=== PATIENT | male | born 1950 | race African-American/Black ===

== ENCOUNTER 2016-07-17 22:10 | Inpatient (IN) | payer MEDICARE ==
[~2016-07-17] VITALS: Ht 172.7 cm; Wt 92.1 kg
[2016-07-17] MEDS ORDERED: FENTANYL PF 100 MCG/2 ML VIAL. IV PRN (23:15)
[2016-07-17 23:22] LABS: BASO % 1 % (0-3); EOS % 2 % (0-3); HEMATOCRIT 42.3 % (39.0-53.0); HEMOGLOBIN 14.3 g/dL (13.0-17.5); LYMPH # 1.6 x10^3/uL (1.0-4.8); LYMPH % 24 % (24-48); MEAN CORPUSCULAR HEMOGLOBIN 31 pg (25-35); MEAN CORPUSCULAR HGB CONC 34 g/dL (31-37); MEAN CORPUSCULAR VOLUME 91 fL (79-100); MONO % 12 % (0-9); NEUT % 61 % (31-73); PLATELET COUNT 260 x10^3/uL (140-400); RED BLOOD COUNT 4.65 x10^6/uL (4.30-5.70); RED CELL DISTRIBUTION WIDTH 13.3 % (11.5-14.5); WHITE BLOOD COUNT 6.8 x10^3/uL (4.0-11.0)
[2016-07-17] MEDS ORDERED: ONDANSETRON PF 4 MG/2 ML VIAL. IV ONE (23:30)
[2016-07-17] MEDS ORDERED: IV NORMAL SALINE 1000ML BAG 1,000 ML IV SCH (23:30)
[2016-07-17 23:31] LABS: INR 1.1 (0.8-1.1); PROTHROMBIN TIME PATIENT 13.5 SEC (11.7-14.0)
[2016-07-17 23:34] LABS: CALCIUM 9.7 mg/dL (8.5-10.1); CREATININE 1.1 mg/dL (0.7-1.3); POTASSIUM 4.2 mmol/L (3.5-5.1)
[2016-07-17 23:40] LABS: ALBUMIN 3.7 g/dL (3.4-5.0); DIRECT BILIRUBIN 0.1 mg/dL (0.0-0.2); MAGNESIUM 1.9 mg/dL (1.8-2.4); TOTAL BILIRUBIN 0.4 mg/dL (0.2-1.0); TOTAL PROTEIN 7.5 g/dL (6.4-8.2)
--- NOTE | 2016-07-17 23:46 | PHYS DOC ---
Past Medical History Past Medical History: Arthritis, CVA, Diabetes-Type II, Hypertension Additional Past Medical Histor: "mini stroke," mi 1999, neuropathy,ptsd Past Surgical History: Other Additional Past Surgical Histo: L ankle, carpel tunnel Alcohol Use: None Drug Use: None Adult General Chief Complaint Chief Complaint: CHEST PAIN HPI HPI Patient is a 65 year old male who presents with complaint of chest pain. Patient states that his symptoms started approximately 2100 this evening. Patient states that he had just sat down to watch television when he started getting severe right-sided chest pain. Patient states that this radiated across to his left anterior chest. Patient states that the pain was very sharp. Patient states that he had associated left shoulder pain with numbness, nausea, and shortness of breath with his symptoms. Patient states that he has history of previous myocardial infarction that took place in 1999. Patient states that he did not require endovascular stenting at that time. The patient has history of hypertension, hyperlipidemia, type 2 diabetes mellitus, and has history of extensive tobacco use. Patient states he did quit smoking cigarettes 10 years ago. Patient denies any associated fevers or productive cough. Patient was brought to the emergency department by EMS for further evaluation. The patient was given full strength aspirin and nitroglycerin prior to arrival. Patient states that this helped reduce his symptoms mildly. Patient currently rates his pain as 6 out of 10. Review of Systems Review of Systems Constitutional: Denies fever or chills [] Eyes: Denies change in visual acuity, redness, or eye pain [] HENT: Denies nasal congestion or sore throat [] Respiratory: Shortness of breath [] Cardiovascular: Chest pain, denies edema [] GI: Nausea, denies abdominal pain, vomiting, bloody stools or diarrhea [] : Denies dysuria or hematuria [] Musculoskeletal: Denies back pain or joint pain [] Integument: Denies rash or skin lesions [] Neurologic: Denies headache, focal weakness or sensory changes [] Current Medications Current Medications Current Medications Medications (Trade) Dose Ordered Sig/Rachid Start Time Stop Time Status Last Admin Dose Admin Fentanyl Citrate 50 mcg 50 mcg PRN Q15MIN PRN 07/17/16 23:15 07/18/16 23:14 Ondansetron HCl (Zofran) 4 mg 1X ONCE 07/17/16 23:30 07/17/16 23:31 DC Sodium Chloride (Iv Sodium Chloride 0.9% 1000ml Bag) 1,000 ml @ 100 mls/hr Q10H 07/17/16 23:30 07/18/16 09:29 Allergies Allergies Allergies Coded Allergies Type Severity Reaction Last Updated Verified No Known Drug Allergies 07/17/16 No Physical Exam Physical Exam Constitutional: Alert, afebrile, appears in moderate discomfort. [] HENT: Normocephalic, atraumatic, bilateral external ears normal, oropharynx moist, no oral exudates, nose normal. [] Eyes: PERRLA, EOMI, conjunctiva normal, no discharge. [] Neck: Normal range of motion, no tenderness, supple, no stridor. [] Cardiovascular:Heart rate regular rhythm, no murmur [] Lungs & Thorax: Bilateral breath sounds clear to auscultation [] Abdomen: Bowel sounds normal, soft, no tenderness, no masses, no pulsatile masses. [] Skin: Warm, dry, no erythema, no rash. [] Back: No tenderness, no CVA tenderness. [] Extremities: No tenderness, no cyanosis, no clubbing, ROM intact, no edema. [] Neurologic: Alert and oriented X 3, normal motor function, normal sensory function, no focal deficits noted. [] Current Patient Data Vital Signs Vital Signs Date Time Temp Pulse Resp B/P Pulse Ox O2 Delivery O2 Flow Rate FiO2 07/17/16 22:10 98.8 75 16 128/78 98 4 98.8 Lab Values Laboratory Tests Test 07/17/16 22:40 White Blood Count 6.8x10^3/uL (4.0-11.0) Red Blood Count 4.65x10^6/uL (4.30-5.70) Hemoglobin 14.3g/dL (13.0-17.5) Hematocrit 42.3% (39.0-53.0) Mean Corpuscular Volume 91fL (79-100) Mean Corpuscular Hemoglobin 31pg (25-35) Mean Corpuscular Hemoglobin Concent 34g/dL (31-37) Red Cell Distribution Width 13.3% (11.5-14.5) Platelet Count 260x10^3/uL (140-400) Neutrophils (%) (Auto) 61% (31-73) Lymphocytes (%) (Auto) 24% (24-48) Monocytes (%) (Auto) 12% (0-9) H Eosinophils (%) (Auto) 2% (0-3) Basophils (%) (Auto) 1% (0-3) Neutrophils # (Auto) 4.1x10^3uL (1.8-7.7) Lymphocytes # (Auto) 1.6x10^3/uL (1.0-4.8) Monocytes # (Auto) 0.8x10^3/uL (0.0-1.1) Eosinophils # (Auto) 0.1x10^3/uL (0.0-0.7) Basophils # (Auto) 0.0x10^3/uL (0.0-0.2) Prothrombin Time 13.5SEC (11.7-14.0) Prothrombin Time INR 1.1 (0.8-1.1) Sodium Level 142mmol/L (136-145) Potassium Level 4.2mmol/L (3.5-5.1) Chloride Level 103mmol/L (98-107) Carbon Dioxide Level 28mmol/L (21-32) Anion Gap 11 (6-14) Blood Urea Nitrogen 20mg/dL (8-26) Creatinine 1.1mg/dL (0.7-1.3) Estimated GFR (Cockcroft-Gault) 67.0 Glucose Level 135mg/dL (70-99) H Calcium Level 9.7mg/dL (8.5-10.1) Magnesium Level 1.9mg/dL (1.8-2.4) Total Bilirubin 0.4mg/dL (0.2-1.0) Direct Bilirubin 0.1mg/dL (0.0-0.2) Aspartate Amino Transferase (AST) 35U/L (15-37) Alanine Aminotransferase (ALT) 48U/L (16-63) Alkaline Phosphatase 71U/L (46-116) Troponin I Quantitative < 0.017ng/mL (0.000-0.055) Total Protein 7.5g/dL (6.4-8.2) Albumin 3.7g/dL (3.4-5.0) Laboratory Tests 07/17/16 22:40 Laboratory Tests 07/17/16 22:40 EKG EKG Interpreted by me: Heart rate 75, sinus rhythm, normal intervals, normal axis, no acute ST/T-wave abnormalities present [] Radiology/Procedures Radiology/Procedures One view AP chest x-ray interpreted by me: No infiltrate, no effusion, normal cardiac silhouette Course & Med Decision Making Course & Med Decision Making Pertinent Labs and Imaging studies reviewed. (See chart for details) Patient was given fentanyl for pain with mild improvement. Patient's initial cardiac enzymes were negative. The patient has a SANDI score is 4 placing patient had significant risk for a cardiac event. The patient will need to be admitted to the hospital for rule out of myocardial infarction. I spoke with Dr. Holloway who accepted care patient in hospital. A consult was placed to Dr. David of cardiology to follow with patient in hospital. Dragon Disclaimer Dragon Disclaimer This electronic medical record was generated, in whole or in part, using a voice recognition dictation system. Departure Departure Impression: Primary Impression: Chest pain Additional Impressions: Hypertension Hyperlipidemia Type 2 diabetes mellitus History of myocardial infarction Disposition: ADMITTED INPATIENT Admitting Physician: Babar Holloway Condition: STABLE Problem Qualifiers Primary Impression: Chest pain Chest pain type: unspecified Qualified Code: R07.9 - Chest pain, unspecified Additional Impressions: Hypertension Hypertension type: essential hypertension Qualified Code: I10 - Essential ( primary) hypertension Hyperlipidemia Hyperlipidemia type: unspecified Qualified Code: E78.5 - Hyperlipidemia, unspecified Type 2 diabetes mellitus Diabetes mellitus complication status: without complication Diabetes mellitus intermodal truck driver insulin use: unspecified residential insulin use status Qualified Code: E11.9 - Type 2 diabetes mellitus without complications RHONA THOMASON MD Jul 17, 2016 23:46
[2016-07-17 23:47] LABS: CKMB INDEX 0.7 % (0-4); CKMB MASS 0.7 ng/mL (0.0-3.6)
[2016-07-17] MEDS: IV NORMAL SALINE 1000ML BAG 1,000 ML IV SCH (23:54)
[2016-07-18] VITALS (7 sets, daily range): BP systolic 104–131; BP diastolic 50–76
[2016-07-18] MEDS ORDERED: FENTANYL PF 100 MCG/2 ML VIAL. IV PRN
[2016-07-18] MEDS ORDERED: ONDANSETRON PF 4 MG/2 ML VIAL. IV PRN
[2016-07-18] MEDS ORDERED: ACETAMINOPHEN 325 MG TABLET. PO PRN
[2016-07-18] MEDS ORDERED: ONDA-36 PO (01:24)
[2016-07-18] MEDS ORDERED: MINE120C TP (01:24)
[2016-07-18] MEDS ORDERED: CLON0.2T PO (01:24)
[2016-07-18] MEDS ORDERED: CHOL10003 PO (01:24)
[2016-07-18] MEDS ORDERED: CLON0.1T PO (01:24)
[2016-07-18] MEDS ORDERED: SALI44.3 MM (01:24)
[2016-07-18] MEDS ORDERED: ASPI81TA9 PO (01:24)
[2016-07-18] MEDS ORDERED: NORT75CA PO (01:24)
[2016-07-18] MEDS ORDERED: METF500T4 PO (01:24)
[2016-07-18] MEDS ORDERED: MIRT30TA3 PO (01:24)
[2016-07-18] MEDS ORDERED: FLUO20CA8 PO (01:24)
[2016-07-18] MEDS ORDERED: AMLO10TA2 PO (01:24)
[2016-07-18] MEDS ORDERED: PANT20TA3 PO (01:24)
[2016-07-18] MEDS ORDERED: NAPR500T3 PO (01:24)
[2016-07-18] MEDS ORDERED: ATOR20TA58 PO (01:24)
[2016-07-18] MEDS ORDERED: [UNRECOGNIZED DRUG - CODE] TP (01:24)
[2016-07-18] MEDS ORDERED: LISI-334 PO (01:24)
[2016-07-18 05:48] LABS: BASO % 1 % (0-3); EOS % 3 % (0-3); HEMATOCRIT 40.5 % (39.0-53.0); HEMOGLOBIN 13.1 g/dL (13.0-17.5); LYMPH # 1.6 x10^3/uL (1.0-4.8); LYMPH % 28 % (24-48); MEAN CORPUSCULAR HEMOGLOBIN 30 pg (25-35); MEAN CORPUSCULAR HGB CONC 32 g/dL (31-37); MEAN CORPUSCULAR VOLUME 94 fL (79-100); MONO % 13 % (0-9); NEUT % 57 % (31-73); PLATELET COUNT 207 x10^3/uL (140-400); RED BLOOD COUNT 4.33 x10^6/uL (4.30-5.70); RED CELL DISTRIBUTION WIDTH 13.6 % (11.5-14.5); WHITE BLOOD COUNT 5.9 x10^3/uL (4.0-11.0)
[2016-07-18 06:01] LABS: CALCIUM 8.8 mg/dL (8.5-10.1); GFR 90.5; POTASSIUM 4.2 mmol/L (3.5-5.1)
--- NOTE | 2016-07-18 06:20 | EKG ---
[facility] [address] [place] [address] Test Date: 2016-07-17 Test Time: 22:14:11 Pat Name: ROSALINA BLAIR Department: Room: 261 1 Gender: M Event Specialist Food Demonstrator: : 1950 Requested By: RHONA THOMASON Order Number: [id number] Reading MD: Yamila Stark Measurements Intervals [place] Rate: 75 P: 35 ID: [id number] QRS: 63 QRSD: 90 T: 39 QT: 378 QTc: 425 Interpretive Statements SINUS RHYTHM LEFT ATRIAL ABNORMALITY QRS(T) CONTOUR ABNORMALITY CONSIDER ANTEROSEPTAL MYOCARDIAL DAMAGE RI6.01 Unconfirmed report No previous ECG available for comparison Electronically Signed On 07-21-2016 20:26:06 FULFILLMENT REPRESENTATIVE by Yamila Stark
--- NOTE | 2016-07-18 08:48 | RAD ---
Portable chest, 07/17/2016: History: Chest pain The patient positioning is lordotic. The heart size and pulmonary vascularity are normal. There is a small peripheral density in the upper right chest laterally which appears to be pleural-based. No underlying rib destruction is seen. There is minimal linear scarring or atelectasis in the right base. The lungs are otherwise clear. There is no evidence of pleural fluid. IMPRESSION: Small pleural-based mass in the lateral aspect of the right upper chest. Correlation with previous chest radiographs if available would be most helpful in determining whether this is stable finding. CT scanning may also be considered for further evaluation. Note: The findings were called to personnel in the [facility] ER at 8:43 AM on 07/18/2016.
--- NOTE | 2016-07-18 09:06 | PDOC2 ---
CARDIAC CONSULT DATE OF CONSULT Date of Consult DATE: 07/18/16 TIME: 08:57 REASON FOR CONSULT Reason for Consult: Chest pain REFERRING PHYSICIAN Referring Physician: Leighann SOURCE Source: Chart review, Patient HISTORY OF PRESENT ILLNESS HISTORY OF PRESENT ILLNESS This is a pleasant 65 yo male admitted for complains of chest pain. Reports that he was sitting up in chair watching TV when all of a sudden he started having sharp pain to his right chest which stayed for 5 minutes then spread to his left chest. He was not SOA at that time but unable to take a deep breath due to pain. Also associated with nausea, diaphoresis, and left arm numbness. He took a baby dose of ASA at that time. His overall symptoms lasted about 20 minutes. When I checked him and have him actively sit up, his right chest discomfort was duplicated. Denies any palpitations nor BLOOM. His mobility is limited and he lives in a form of assisted living facility. He is significant for NC in 1999 but no intervention was done. 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 He is significant for TIA, HTN, DM2(BG home 100-150), HLP. He is compliant with his medications. Denies any long distance travel recently. Denies any injury, falls, overhead reaching nor cancer or VTE. He does take routine naproxen bid in the last 2 yrs for his lower back and right hip pain related to arthritis. PAST MEDICAL HISTORY Cardiovascular: CAD, HTN, NC, Hyperlipidemia Pulmonary: No pertinent hx CENTRAL NERVOUS SYSTEM: Periperal neuropathy, TIA GI: GERD Heme/Onc: No pertinent hx Hepatobiliary: No pertinent hx Psych: Anxiety, Other (PTSD) Musculoskeletal: Osteoarthritis Rheumatologic: No pertinent hx Infectious disease: No pertinent hx Renal/: No pertinent hx Endocrine: Diabetes (2) Dermatology: No pertinent hx PAST SURGICAL HISTORY Past Surgical History: Arthroscopy (right ankle), Other (Left carpal tunnel repair) FAMILY HISTORY Family History noncontributory to CV SOCIAL HISTORY Smoke: No (quit 10 yrs ago 40 pk yr) ALCOHOL: none Drugs: None Lives: Alone CURRENT MEDICATIONS CURRENT MEDICATIONS Current Medications Medications (Trade) Dose Ordered Sig/Rachid Route PRN Reason Start Time Stop Time Status Last Admin Dose Admin Fentanyl Citrate 50 mcg 50 mcg PRN Q15MIN PRN IV PAIN GREATER THAN 3/10 07/17/16 23:15 07/18/16 01:00 DC 07/17/16 23:47 Sodium Chloride (Iv Sodium Chloride 0.9% 1000ml Bag) 1,000 ml @ 100 mls/hr Q10H IV 07/17/16 23:30 07/18/16 09:29 07/17/16 23:46 Ondansetron HCl 4 mg 4 mg 1X ONCE IV 07/17/16 23:30 07/17/16 23:31 DC 07/17/16 23:46 Sodium Chloride (Iv Sodium Chloride 0.9% 1000ml Bag) 1,000 ml @ 100 mls/hr Q10H IV 07/17/16 23:54 07/18/16 23:53 07/17/16 23:54 ALLERGIES ALLERGIES: Coded Allergies: No Known Drug Allergies (Unverified , 07/17/16) ROS Review of System 14 point ROS evaluated with pertinent positives noted per HPI PHYSICAL EXAM General: Alert, Oriented X3, Cooperative, No acute distress HEENT: Atraumatic, Mucous membr. moist/pink Lungs: Clear to auscultation, Normal air movement Heart: Regular rate, Normal S1, Normal S2, Other (2/6 systolic murmur to LLS border) Abdomen: Soft, Other (RUQ tenderness with palpation) Extremities: No cyanosis, No edema Skin: No breakdown, No significant lesion Neuro: Normal speech, Sensation intact Psych/Mental Status: Mental status NL, Mood NL MUSCULOSKELETAL: Osteoarthritic changes both hands VITALS VITALS Vital Signs Date Time Temp Pulse Resp B/P Pulse Ox O2 Delivery O2 Flow Rate FiO2 07/18/16 07:00 98.4 63 16 125/65 97 Room Air 98.4 07/17/16 22:10 4 LABS Lab: Laboratory Tests Test 07/17/16 22:40 07/18/16 05:20 White Blood Count 6.8x10^3/uL (4.0-11.0) 5.9x10^3/uL (4.0-11.0) Red Blood Count 4.65x10^6/uL (4.30-5.70) 4.33x10^6/uL (4.30-5.70) Hemoglobin 14.3g/dL (13.0-17.5) 13.1g/dL (13.0-17.5) Hematocrit 42.3% (39.0-53.0) 40.5% (39.0-53.0) Mean Corpuscular Volume 91fL (79-100) 94fL (79-100) Mean Corpuscular Hemoglobin 31pg (25-35) 30pg (25-35) Mean Corpuscular Hemoglobin Concent 34g/dL (31-37) 32g/dL (31-37) Red Cell Distribution Width 13.3% (11.5-14.5) 13.6% (11.5-14.5) Platelet Count 260x10^3/uL (140-400) 207x10^3/uL (140-400) Neutrophils (%) (Auto) 61% (31-73) 57% (31-73) Lymphocytes (%) (Auto) 24% (24-48) 28% (24-48) Monocytes (%) (Auto) 12% (0-9) 13% (0-9) Eosinophils (%) (Auto) 2% (0-3) 3% (0-3) Basophils (%) (Auto) 1% (0-3) 1% (0-3) Neutrophils # (Auto) 4.1x10^3uL (1.8-7.7) 3.3x10^3uL (1.8-7.7) Lymphocytes # (Auto) 1.6x10^3/uL (1.0-4.8) 1.6x10^3/uL (1.0-4.8) Monocytes # (Auto) 0.8x10^3/uL (0.0-1.1) 0.8x10^3/uL (0.0-1.1) Eosinophils # (Auto) 0.1x10^3/uL (0.0-0.7) 0.2x10^3/uL (0.0-0.7) Basophils # (Auto) 0.0x10^3/uL (0.0-0.2) 0.0x10^3/uL (0.0-0.2) Prothrombin Time 13.5SEC (11.7-14.0) Prothromb Time International Ratio 1.1 (0.8-1.1) Sodium Level 142mmol/L (136-145) 137mmol/L (136-145) Potassium Level 4.2mmol/L (3.5-5.1) 4.2mmol/L (3.5-5.1) Chloride Level 103mmol/L (98-107) 106mmol/L (98-107) Carbon Dioxide Level 28mmol/L (21-32) 26mmol/L (21-32) Anion Gap 11 (6-14) 5 (6-14) Blood Urea Nitrogen 20mg/dL (8-26) 17mg/dL (8-26) Creatinine 1.1mg/dL (0.7-1.3) 1.0mg/dL (0.7-1.3) Estimated GFR (Cockcroft-Gault) 67.0 90.5 Glucose Level 135mg/dL (70-99) 118mg/dL (70-99) Calcium Level 9.7mg/dL (8.5-10.1) 8.8mg/dL (8.5-10.1) Magnesium Level 1.9mg/dL (1.8-2.4) Total Bilirubin 0.4mg/dL (0.2-1.0) Direct Bilirubin 0.1mg/dL (0.0-0.2) Aspartate Amino Transf (AST/SGOT) 35U/L (15-37) Alanine Aminotransferase (ALT/SGPT) 48U/L (16-63) Alkaline Phosphatase 71U/L (46-116) Creatine Kinase 104U/L (39-308) Creatine Kinase MB (Mass) 0.7ng/mL (0.0-3.6) Creatine Kinase MB Relative Index 0.7% (0-4) Troponin I Quantitative < 0.017ng/mL (0.000-0.055) CO-Xrb-X-Type Natriuretic Peptide 59pg/mL (0-124) Total Protein 7.5g/dL (6.4-8.2) Albumin 3.7g/dL (3.4-5.0) ASSESSMENT/PLAN ASSESSMENT/PLAN 1. Atypical CP: mixed features but with significant cardiac risk factors 2. CAD: NC in 1999 no intervention done. 3. Right pleural lesion: new, which could be the likely source of his CP 4. Chronic NSAID use: 2 yrs of aleve with PPI, esophagitis?gastritis? causing CP 5. HTN: controlled 6. HLP 7. DM2 8. Hx of TIA: remote Recommendations 1. MPI today to completely rule out ischemia 2. Recommend CT chest which could also note his GB status (positive murphys sign ), defer to PCP 3. TSH, lipid panel 4. EKG SR/likely CLARITA without acute changes. TTE today 5. Continue with secondary prevention Problems: ERNIE ACHARYA APRN Jul 18, 2016 09:06
[2016-07-18 10:08] LABS: CHOLESTEROL/HDL RATIO 3.5
[2016-07-18] MEDS ORDERED: REGADENOSON 0.4 MG/5 ML DISP.SYRIN. IV ONE (10:15)
[2016-07-18] MEDS ORDERED: ONDANSETRON ODT 4 MG TAB.RAPDIS PO PRN (11:15)
--- NOTE | 2016-07-18 11:20 | CARD ---
APPROVED REPORT EXAM: Two-dimensional and M-mode echocardiogram with Doppler and color Doppler. Other Information Quality : Average Rhythm : NSR INDICATION Cardiac Disease: CAD Chest Pain RISK FACTORS Hyperlipidemia Diabetes 2D DIMENSIONS RVDd3.2 (2.9-3.5cm)Left Atrium(2D)3.7 (1.6-4.0cm) IVSd0.8 (0.7-1.1cm)Aortic Root(2D)2.7 (2.0-3.7cm) LVDd4.4 (3.9-5.9cm)LVOT Diameter2.0 (1.8-2.4cm) PWd0.8 (0.7-1.1cm)LVDs3.1 (2.5-4.0cm) FS (%) 26.8 %SV50.1 ml LVEF(%)54.2 (>50%) Aortic Valve AoV Peak Beka.129.3cm/sAoV VTI31.9cm AO Peak GR.6.7mmHgLVOT Peak Beka.95.7cm/s AO Mean GR.4mmHgAVA (VMAX)2.28cm2 BRYAN (VTI)2.30cm2 Mitral Valve MV E Aklisjor99.6cm/sMV E Peak Gr.3mmHg MV DECEL [id number] A Grxkfvny94.5cm/s MV E Mean Gr.1mmHgMV ZFA23av E/A Ratio0.9MV A Fuvzsnkg039nf MVA (PHT)3.75cm2 Tricuspid Valve TR P. Rxqbswux815rl/sRAP NHDGSMBN4obIg TR Peak Gr.09rgFoCMAO46mnLh Pulmonary Vein S1 Qisfmptg30.5cm/sD2 Mdfjvumg47.4cm/s PVa zvbibcjd470dhxr LEFT VENTRICLE The left ventricle is normal size. There is normal left ventricular wall thickness. Left ventricle sy stolic function is low normal. The Ejection Fraction is 50%. There is normal LV segmental wall motion . The left ventricular diastolic function and filling is normal for age. RIGHT VENTRICLE The right ventricle is normal size. The right ventricular systolic function is normal. ATRIA The left atrium size is normal. The right atrium size is normal. The interatrial septum is intact wit h no evidence for an atrial septal defect or patent foramen ovale as noted on 2-D or Doppler imaging. AORTIC VALVE The aortic valve is mildly calcifed. The aortic valve is trileaflet. Doppler and Color Flow revealed no significant aortic regurgitation. There is no significant aortic valvular stenosis. MITRAL VALVE Mitral annular calcification is mild. There is no mitral valve stenosis. Doppler and Color Flow revea led trace mitral regurgitation. TRICUSPID VALVE The tricuspid valve is normal in structure and function. Doppler and Color Flow revealed trace tricus pid regurgitation. The PA pressure was estimated at 20 mmHg. There is no tricuspid valve stenosis. PULMONIC VALVE The pulmonic valve is not well visualized. Doppler and Color Flow revealed no pulmonic valvular regur gitation. There is no pulmonic valvular stenosis. GREAT VESSELS The aortic root is normal in size. Normal pulmonary venous flow (Doppler). The IVC is normal in size and collapses >50% with inspiration. PERICARDIAL EFFUSION There is no evidence of significant pericardial effusion. Critical Notification Critical Value: No <Conclusion> Left ventricle systolic function is low normal. The Ejection Fraction is 50%. No significant valvular disease.
--- NOTE | 2016-07-18 13:48 | RAD ---
APPROVED REPORT Test Type: Pharmacological Stress Nurse/Tech: Stephanie Hunt R.N. Test Indications: Chest discomfort Cardiac History: TN in 1999, HTN Medications: SEE EMR Medical History: Former smoker, quit 10 years ago, DM, CVA 2010 Resting ECG: SR Resting Heart Rate: 60 bpm Resting Blood Pressure: 133/69mmHg Pretest Chest Pain: No chest pain Nurse/Tech Notes S1S2, lungs CTA, denied chest pain or SOA. Consent: The procedure was explained to the patient in lay terms. Informed consent was witnessed. Artie eout was entered into [facility]. History and Stress Test performed by Stephanie Hunt R.N. Pharm. Details Pharmacologic stress testing was performed using 0.4mg per 5ml of regadenoson given intravenously ove r 7-10 seconds. Stress Symptoms None reported. POST EXERCISE Reason for Termination: Infusion complete Max HR: 96 bpm Max Blood Pressure: 125/66mmHg Blood Pressure response to exercise: Normal blood pressure response during stress. Heart Rate response to exercise: Normal Chest Pain: No. Arrhythmia: No. ST Change: No. INTERPRETATION Stress EKG Conclusion: The resting EKG showed a sinus rhythm with mild nonspecific ST segment changes . The stress EKG showed no significant changes from baseline. No EKG evidence of stress-induced ischemia. Imaging Protocol IMAGE PROTOCOL: Rest Tc-99m/stress Tc-99m 1 day Rest: Stress: Viability: Radiopharm.Tc99m LpzkdyfkrIn86a Sestamibi Dose12.4mCi 36.1mCi Duration 15min. 10min. Img Date 07/18/2016 07/18/2016 Inj-Img [id number]. 90min. Rest Admin Site:IV - Right AntecubitalAdministrator:SONG Cortez Stress Admin Site: IV - Right AntecubitalAdministrator: KATHERINE Campos, ARRT (R)(N) STRESS DATA End Diast. Vol.92.0mlAv. Heart Rate67.0bpm End Syst. Vol.25.0mlCO Index BSA4.5L/min Myocardial Fsau218.0gEject. Xydlchma12.0% Stress Rates Pk. Fill Rate1.90EDV/secLVtime Pk. Fill 111.51msec Pk. Empty Rate3.09ESV/secLVtime Pk. Tdgsq000.84msec 1/3 Pk. Fill1.45EDV/sec Stress Scores Regional WT0.00Summed WT0.00 Regional WM0.00Summed WM2.00 LV Perfusion The stress scans showed no significant defects. The rest scans showed no significant defects. Nuclear imaging shows no reversible ischemia or infarct. Wall Motion Normal left ventricular systolic function with an ejection fraction of greater than 70%. LV Perf. Quant 17 Seg. SSS0.00 17 Seg. SRS1.00 17 Seg. SDS0.00 Stress Defect Extent (% LAD)0.00Rest Defect Extent (% LAD)0.00Rev. Defect Extent (% LAD)0.00 Stress Defect Extent (% LCX) 0.00Rest Defect Extent (% LCX)0.00Rev. Defect Extent (% LCX)0.00 Stress Defect Extent (% RCA)0.00Rest Defect Extent (% RCA)0.00Rev. Defect Extent (% RCA)0.00 Stress Defect Extent (% EMELIA)0.00Rest Defect Extent (% EMELIA)0.00Rev. Defect Extent (% EMELIA)0.00 Conclusion 1. No EKG evidence of stress-induced ischemia. 2. Nuclear imaging shows no reversible ischemia or infarct. 3. Normal left ventricular systolic function with an ejection fraction of greater than 70%. 4. Low risk Lexiscan nuclear stress test.
[2016-07-18] MEDS: ASPIRIN ENTERIC COATED 81 MG TABLET.DR. PO SCH (13:54)
[2016-07-18] MEDS: PANTOPRAZOLE 40 MG TABLET. PO SCH (13:54)
[2016-07-18] MEDS: CLONIDINE HCL 0.1 MG TABLET PO SCH (13:54)
[2016-07-18] MEDS: CHOLECALCIFEROL (VITAMIN D3) 1,000 UNIT TABLET PO SCH (13:54)
[2016-07-18] MEDS: LISINOPRIL 20 MG TABLET PO SCH (13:54)
[2016-07-18] MEDS: FLUOXETINE HCL 20 MG CAPSULE PO SCH (13:54)
[2016-07-18] MEDS: MINERAL OIL/PETROLATUM TOPICAL CREAM 113GM JAR. TP SCH ×2 (13:55→21:36)
[2016-07-18] MEDS: IV NORMAL SALINE 1000ML BAG 1,000 ML IV SCH (14:16)
--- NOTE | 2016-07-18 14:17 | RAD ---
Right upper quadrant abdominal ultrasound, 07/18/2016: History: Nausea The gallbladder is within normal limits in size. It contains a fold or partial septation. No gallstones are seen. The gallbladder salter are not thickened. The patient was reportedly tender to transducer pressure over the gallbladder region. No bile duct dilatation is evident. The hepatic echogenicity is increased, most commonly due to fatty change. No hepatic mass is evident. The visualized portions of the right kidney and pancreas are unremarkable. IMPRESSION: 1. No sonographic evidence of cholelithiasis. 2. The patient is tender to transducer pressure over the gallbladder. 3. Increased hepatic echogenicity suggesting fatty change.
[2016-07-18] MEDS: NORTRIPTYLINE 25 MG CAPSULE PO SCH (21:31)
[2016-07-18] MEDS: ATORVASTATIN CALCIUM 20 MG TABLET PO SCH (21:31)
[2016-07-18] MEDS: MIRTAZAPINE 15 MG TABLET PO SCH (21:32)
[2016-07-18] MEDS: CLONIDINE HCL 0.2 MG TABLET PO SCH (21:35)
--- NOTE | 2016-07-18 21:44 | PDOC1 ---
History and Physical Date of Admission Date of Admission seen this AM around 11 AM Identification/Chief Complaint Chief Complaint Chest pain Problems: Past Medical History Cardiovascular: CAD, HTN, RI, Hyperlipidemia Pulmonary: No pertinent hx CENTRAL NERVOUS SYSTEM: Periperal neuropathy, TIA GI: GERD Heme/Onc: No pertinent hx Hepatobiliary: No pertinent hx Psych: Anxiety, Other (PTSD) Rheumatologic: No pertinent hx Infectious disease: No pertinent hx Renal/: No pertinent hx Endocrine: Diabetes (2) Dermatology: No pertinent hx Past Surgical History Past Surgical History: Arthroscopy (right ankle), Other (Left carpal tunnel repair) Social History Smoke: No (quit 10 yrs ago 40 pk yr) ALCOHOL: none Drugs: None Current Problem List Problem List Problems Medical Problems: (1) Chest pain Status: Acute (2) History of myocardial infarction Status: Acute (3) Hyperlipidemia Status: Acute (4) Hypertension Status: Acute (5) Type 2 diabetes mellitus Status: Acute Current Medications Current Medications Current Medications Medications (Trade) Dose Ordered Sig/Rachid Start Time Stop Time Status Last Admin Dose Admin Acetaminophen (Tylenol) 650 mg PRN Q4HRS PRN 07/18/16 00:00 07/18/16 23:59 Amlodipine Besylate (Norvasc) 10 mg DAILY 07/19/16 09:00 Aspirin (Ecotrin) 81 mg DAILY 07/18/16 12:00 07/18/16 13:54 81 MG Atorvastatin Calcium (Lipitor) 20 mg HS 07/18/16 21:00 Clonidine HCl (Catapres) 0.2 mg QHS 07/18/16 21:00 Fentanyl Citrate (Fentanyl 2ml Vial) 50 mcg PRN Q15MIN PRN 07/17/16 23:15 07/18/16 01:00 DC 07/17/16 23:47 50 MCG Fentanyl Citrate 50 mcg 50 mcg PRN Q2HR PRN 07/18/16 00:00 07/18/16 23:59 Fluoxetine HCl (Prozac) 20 mg DAILY 07/18/16 12:00 07/18/16 13:54 20 MG Lisinopril (Prinivil) 20 mg DAILY 07/18/16 12:00 07/18/16 13:54 20 MG Mirtazapine (Remeron) 30 mg QHS 07/18/16 21:00 Multi-Ingred Cream/Lotion/Oil/ Oint (Hydrocerin) 1 alessandra BID 07/18/16 12:00 07/18/16 13:55 1 ALESSANDRA Nortriptyline HCl (Pamelor) 150 mg QHS 07/18/16 21:00 Ondansetron HCl (Zofran Odt) 8 mg PRN BID PRN 07/18/16 11:15 Ondansetron HCl (Zofran) 4 mg PRN Q8HRS PRN 07/18/16 00:00 07/18/16 23:59 Pantoprazole Sodium (Protonix) 40 mg DAILYAC 07/18/16 12:00 07/18/16 13:54 40 MG Regadenoson (Lexiscan) 0.4 mg 1X ONCE 07/18/16 10:15 07/18/16 10:16 DC 07/18/16 11:20 0.4 MG Sodium Chloride (Iv Sodium Chloride 0.9% 1000ml Bag) 1,000 ml @ 100 mls/hr Q10H 07/17/16 23:54 07/18/16 23:53 07/18/16 14:16 100 MLS/HR Vitamin D (Vitamin D3) 1,000 unit DAILY 07/18/16 12:00 07/18/16 13:54 1,000 UNIT Allergies Allergies Allergies Coded Allergies Type Severity Reaction Last Updated Verified No Known Drug Allergies 07/17/16 No ROS Review of System CONSTITUTIONAL: No fever or chills EYES: No recent changes SKIN: No rash or itching CARDIOVASCULAR: Chest pain, no syncope, palpitations, or edema RESPIRATORY: No SOB or cough GASTROINTESTINAL: No nausea, vomiting or abdominal pain NEUROLOGICAL: No headaches or weakness ENDOCRINE: No cold or heat intolerance GENITOURINARY: No urgency or frequency of urination MUSCULOSKELETAL: No back pain or joint pain LYMPHATICS: No enlarged lymph nodes PSYCHIATRIC: No anxiety or depression Physical Exam Physical Exam GEN.: No apparent distress. Alert and oriented. HEENT: Head is normocephalic, atraumatic NECK: Supple. NO JVD LUNGS: Clear to auscultation. normal airflow HEART: RRR, S1, S2 present. Peripheral pulses intact ABDOMEN: Soft, nontender. Positive bowel sounds. EXTREMITIES: Without any cyanosis. NEUROLOGIC: Normal speech, normal tone PSYCHIATRIC: Normal affect, normal mood. SKIN: No visible skin changes. Vitals Vitals Vital Signs Date Time Temp Pulse Resp B/P Pulse Ox O2 Delivery O2 Flow Rate FiO2 07/18/16 15:00 97.9 68 18 121/50 99 Room Air 97.9 07/17/16 22:10 4 Labs Labs Laboratory Tests Test 07/17/16 22:40 07/18/16 05:20 07/18/16 08:24 07/18/16 11:59 White Blood Count 6.8x10^3/uL (4.0-11.0) 5.9x10^3/uL (4.0-11.0) Red Blood Count 4.65x10^6/uL (4.30-5.70) 4.33x10^6/uL (4.30-5.70) Hemoglobin 14.3g/dL (13.0-17.5) 13.1g/dL (13.0-17.5) Hematocrit 42.3% (39.0-53.0) 40.5% (39.0-53.0) Mean Corpuscular Volume 91fL (79-100) 94fL (79-100) Mean Corpuscular Hemoglobin 31pg (25-35) 30pg (25-35) Mean Corpuscular Hemoglobin Concent 34g/dL (31-37) 32g/dL (31-37) Red Cell Distribution Width 13.3% (11.5-14.5) 13.6% (11.5-14.5) Platelet Count 260x10^3/uL (140-400) 207x10^3/uL (140-400) Neutrophils (%) (Auto) 61% (31-73) 57% (31-73) Lymphocytes (%) (Auto) 24% (24-48) 28% (24-48) Monocytes (%) (Auto) 12% (0-9) 13% (0-9) Eosinophils (%) (Auto) 2% (0-3) 3% (0-3) Basophils (%) (Auto) 1% (0-3) 1% (0-3) Neutrophils # (Auto) 4.1x10^3uL (1.8-7.7) 3.3x10^3uL (1.8-7.7) Lymphocytes # (Auto) 1.6x10^3/uL (1.0-4.8) 1.6x10^3/uL (1.0-4.8) Monocytes # (Auto) 0.8x10^3/uL (0.0-1.1) 0.8x10^3/uL (0.0-1.1) Eosinophils # (Auto) 0.1x10^3/uL (0.0-0.7) 0.2x10^3/uL (0.0-0.7) Basophils # (Auto) 0.0x10^3/uL (0.0-0.2) 0.0x10^3/uL (0.0-0.2) Prothrombin Time 13.5SEC (11.7-14.0) Prothromb Time International Ratio 1.1 (0.8-1.1) Sodium Level 142mmol/L (136-145) 137mmol/L (136-145) Potassium Level 4.2mmol/L (3.5-5.1) 4.2mmol/L (3.5-5.1) Chloride Level 103mmol/L (98-107) 106mmol/L (98-107) Carbon Dioxide Level 28mmol/L (21-32) 26mmol/L (21-32) Anion Gap 11 (6-14) 5 (6-14) Blood Urea Nitrogen 20mg/dL (8-26) 17mg/dL (8-26) Creatinine 1.1mg/dL (0.7-1.3) 1.0mg/dL (0.7-1.3) Estimated GFR (Cockcroft-Gault) 67.0 90.5 Glucose Level 135mg/dL (70-99) 118mg/dL (70-99) Calcium Level 9.7mg/dL (8.5-10.1) 8.8mg/dL (8.5-10.1) Magnesium Level 1.9mg/dL (1.8-2.4) Total Bilirubin 0.4mg/dL (0.2-1.0) Direct Bilirubin 0.1mg/dL (0.0-0.2) Aspartate Amino Transf (AST/SGOT) 35U/L (15-37) Alanine Aminotransferase (ALT/SGPT) 48U/L (16-63) Alkaline Phosphatase 71U/L (46-116) Creatine Kinase 104U/L (39-308) Creatine Kinase MB (Mass) 0.7ng/mL (0.0-3.6) Creatine Kinase MB Relative Index 0.7% (0-4) Troponin I Quantitative < 0.017ng/mL (0.000-0.055) < 0.017ng/mL (0.000-0.055) GI-Ucs-J-Type Natriuretic Peptide 59pg/mL (0-124) Total Protein 7.5g/dL (6.4-8.2) Albumin 3.7g/dL (3.4-5.0) Triglycerides Level 74mg/dL (0-150) Cholesterol Level 138mg/dL (0-200) LDL Cholesterol, Calculated 84mg/dL (0-100) VLDL Cholesterol, Calculated 15mg/dL (0-40) HDL Cholesterol 39mg/dL (40-60) Cholesterol/HDL Ratio 3.5 Thyroid Stimulating Hormone (TSH) 1.168uIU/mL (0.358-3.74) Glucose (Fingerstick) 102mg/dL (70-99) 77mg/dL (70-99) Test 07/18/16 12:25 07/18/16 16:55 07/18/16 18:05 07/18/16 21:08 Troponin I Quantitative < 0.017ng/mL (0.000-0.055) < 0.017ng/mL (0.000-0.055) Glucose (Fingerstick) 167mg/dL (70-99) 125mg/dL (70-99) Laboratory Tests Test 07/17/16 22:40 07/18/16 05:20 07/18/16 08:24 07/18/16 11:59 White Blood Count 6.8x10^3/uL (4.0-11.0) 5.9x10^3/uL (4.0-11.0) Red Blood Count 4.65x10^6/uL (4.30-5.70) 4.33x10^6/uL (4.30-5.70) Hemoglobin 14.3g/dL (13.0-17.5) 13.1g/dL (13.0-17.5) Hematocrit 42.3% (39.0-53.0) 40.5% (39.0-53.0) Mean Corpuscular Volume 91fL (79-100) 94fL (79-100) Mean Corpuscular Hemoglobin 31pg (25-35) 30pg (25-35) Mean Corpuscular Hemoglobin Concent 34g/dL (31-37) 32g/dL (31-37) Red Cell Distribution Width 13.3% (11.5-14.5) 13.6% (11.5-14.5) Platelet Count 260x10^3/uL (140-400) 207x10^3/uL (140-400) Neutrophils (%) (Auto) 61% (31-73) 57% (31-73) Lymphocytes (%) (Auto) 24% (24-48) 28% (24-48) Monocytes (%) (Auto) 12% (0-9) 13% (0-9) Eosinophils (%) (Auto) 2% (0-3) 3% (0-3) Basophils (%) (Auto) 1% (0-3) 1% (0-3) Neutrophils # (Auto) 4.1x10^3uL (1.8-7.7) 3.3x10^3uL (1.8-7.7) Lymphocytes # (Auto) 1.6x10^3/uL (1.0-4.8) 1.6x10^3/uL (1.0-4.8) Monocytes # (Auto) 0.8x10^3/uL (0.0-1.1) 0.8x10^3/uL (0.0-1.1) Eosinophils # (Auto) 0.1x10^3/uL (0.0-0.7) 0.2x10^3/uL (0.0-0.7) Basophils # (Auto) 0.0x10^3/uL (0.0-0.2) 0.0x10^3/uL (0.0-0.2) Prothrombin Time 13.5SEC (11.7-14.0) Prothromb Time International Ratio 1.1 (0.8-1.1) Sodium Level 142mmol/L (136-145) 137mmol/L (136-145) Potassium Level 4.2mmol/L (3.5-5.1) 4.2mmol/L (3.5-5.1) Chloride Level 103mmol/L (98-107) 106mmol/L (98-107) Carbon Dioxide Level 28mmol/L (21-32) 26mmol/L (21-32) Anion Gap 11 (6-14) 5 (6-14) Blood Urea Nitrogen 20mg/dL (8-26) 17mg/dL (8-26) Creatinine 1.1mg/dL (0.7-1.3) 1.0mg/dL (0.7-1.3) Estimated GFR (Cockcroft-Gault) 67.0 90.5 Glucose Level 135mg/dL (70-99) 118mg/dL (70-99) Calcium Level 9.7mg/dL (8.5-10.1) 8.8mg/dL (8.5-10.1) Magnesium Level 1.9mg/dL (1.8-2.4) Total Bilirubin 0.4mg/dL (0.2-1.0) Direct Bilirubin 0.1mg/dL (0.0-0.2) Aspartate Amino Transf (AST/SGOT) 35U/L (15-37) Alanine Aminotransferase (ALT/SGPT) 48U/L (16-63) Alkaline Phosphatase 71U/L (46-116) Creatine Kinase 104U/L (39-308) Creatine Kinase MB (Mass) 0.7ng/mL (0.0-3.6) Creatine Kinase MB Relative Index 0.7% (0-4) Troponin I Quantitative < 0.017ng/mL (0.000-0.055) < 0.017ng/mL (0.000-0.055) GY-Bpm-A-Type Natriuretic Peptide 59pg/mL (0-124) Total Protein 7.5g/dL (6.4-8.2) Albumin 3.7g/dL (3.4-5.0) Triglycerides Level 74mg/dL (0-150) Cholesterol Level 138mg/dL (0-200) LDL Cholesterol, Calculated 84mg/dL (0-100) VLDL Cholesterol, Calculated 15mg/dL (0-40) HDL Cholesterol 39mg/dL (40-60) Cholesterol/HDL Ratio 3.5 Thyroid Stimulating Hormone (TSH) 1.168uIU/mL (0.358-3.74) Glucose (Fingerstick) 102mg/dL (70-99) 77mg/dL (70-99) Test 07/18/16 12:25 07/18/16 16:55 07/18/16 18:05 07/18/16 21:08 Troponin I Quantitative < 0.017ng/mL (0.000-0.055) < 0.017ng/mL (0.000-0.055) Glucose (Fingerstick) 167mg/dL (70-99) 125mg/dL (70-99) VTE Prophylaxis Ordered VTE Prophylaxis Devices: No VTE Pharmacological Prophylaxi: No VIKAS ACKERMAN MD Jul 18, 2016 21:44
--- NOTE | 2016-07-19 00:08 | ACF ---
Admission Forms Criteria CARDIOLOGY GRG Clinical Indications for Admission to Inpatient Care ( Place 'X' for any and all applicable criteria): Hospital admission is needed for appropriate care of the patient because of ANY ONE of the following (1): [ ] I. Hemodynamic instability as indicated by ALL of the following (1)(2)(3) (4)(5) [ ]a) Vital signs or other findings not as expected for chronic patient condition or baseline [ ]b) Instability indicated by ANY ONE of the following: [ ]i) Hypotension [ ]ii) Symptomatic Tachycardia unresponsive to treatment ( e.g., analgesia, fluids, sedation as indicated) [ ]iii) Inadequate perfusion indicated by ANY ONE of the following: [ ] 1) Lactic acidosis (> 2 mmol/L) [ ] 2) New abnormal capillary refill (> 3 seconds) [ ] 3) Reduced urine output [ ] 4) New altered mental status [ ]iv) Orthostatic vital sign changes unresponsive to treatment (e.g., fluids) [ ]v) IV inotropic or vasopressor medication required to maintain adequate blood pressure or perfusion [ ] II. Severe heart failure as indicated by ANY ONE of the following(17)(18) [ ]a) Respiratory distress [ ]b) Hypotension [ ]c) Anasarca (refractory to outpatient therapy) [ ]d) Cardiac arrhythmias of immediate concern [ ]e) Myocardial ischemia [ ] III. Cardiac arrhythmias or findings of immediate concern indicated by ANY ONE of the following (19)(20): [ ] a) Heart rhythms that are inherently dangerous or unstable indicated by ANY ONE of the following (21)(22)(23): [ ] i) Resuscitated ventricular fibrillation or cardiac arrest [ ] ii) Ventricular escape rhythm [ ] iii) Sustained ventricular tachycardia (30 seconds or more of ventricular rhythm at greater than 100 beats per minute) [ ] iv) Nonsustained ventricular tachycardia and ANY ONE of the following: [ ] 1) Suspected cardiac ischemia as cause or consequence of ventricular tachycardia [ ] 2) In setting of acute myocarditis [ ] b) Unstable cardiac conduction defects indicated by ANY ONE of the following(23)(24)(25) [ ] i) Type II second-degree atrioventricular block [ ]ii) Third-degree atrioventricular block [ ]iii) New-onset left bundle branch block with suspected myocardial ischemia [ ]c) Any heart rhythm and ANY ONE of the following (21)(22)(26)(27) (28) [ ] i) Continuous long-term ECG monitoring needed (e.g., initiation of drug requiring monitoring for more than 24 hours) [ ] ii) Patient has automatic implanted cardioverter defibrillator that is repeatedly firing, malfunctioning, or in need of immediate adjustment of settings beyond the scope of ambulatory or observation care [ ]d) Heart rhythms of concern due to ANY ONE of the following: [ ] i) Hypotension [ ] ii) Respiratory distress [ ] iii) Association with other significant symptoms (e.g., bradycardia with syncope or ongoing dizziness, supraventricular tachycardia with chest pain (14)(15)(17) [ ] IV. Monitoring for cardiac contusion beyond the scope of observation care needed [A](30)(31)(32) [ ] V. Surgical or device complication (e.g., valve replacement complication , pacemaker dysfunction) (35)(41)(44)(45)(46) [ ] . Inpatient palliative care needed. [B](49) Also use Inpatient Palliative Care Criteria [ ] VII. Nonbacterial thrombotic (marantic) endocarditis (36)(43)(47)(48) [X] VIII. Cardiology condition, symptom, or finding for which emergency and observation care has failed or are not considered appropriate. [ ] IX. Acute valvular disease requiring inpatient as indicated by ANY ONE of the following (41) [ ]a) Acute valvular regurgitation (42) [ ]b) Noninfectious valvulitis (43) [ ]c) Obstructive valve thrombosis [ ]d) Paravalvular leak [ ]e) Other significant valvular disorder remaining after emergency or observation level of care (as appropriate) [ ]X. Pericardial disease requiring inpatient treatment as indicated by ANY ONE of the following (33)(34)(35)(36)(37) [ ]a) Suspected tamponade (38)(39)(40) [ ]b) Hemopericardium [ ]c) Other significant pericardial disorder remaining after emergency or observation level of care (as appropriate) [ ] XI. Cardiac ischemia beyond scope of emergency and observation care. [ ] XII. Hypertension requiring inpatient treatment as indicated by ANY ONE of the following (6)(7)(8) [ ]a) SBP greater than 220 mm Hg or DBP greater than 120 mmHg despite treatment [ ]b) SBP greater than 140 mm Hg or DBP greater than 100 mm Hg with evidence of acute end organ damage as indicated by ANY ONE of the following [ ] i) Encephalopathy [ ] ii) Acute renal failure as indicated by new onset of ANY ONE of the following (9)(10)(11)(12)(13) [ ]1) 3-fold rise in serum creatinine from baseline [ ]2) Serum creatinine greater than 4 mg/dL ( 354 micromoles/L) with acute rise greater than 0.5 mg/dL (44.2 micromoles/L) [ ]3) Reduction of more than 75% in estimated glomerular filtration rate from baseline [ ]4) Estimated glomerular filtration rate less than 35 mL/min/1.73m2 (0.59 mL/sec/1.73m2) in child up to 18 years of age [ ]5) Cessation of urine output indicated by ALL of the following [ ]A. Adequate volume status [ ]B. Inadequate urine output as indicated by ANY ONE of the following [ ]a. Urine output less than 0.3 mL/kg/hr for 24 hours [ ]b. Anuria (urine output less than 0.1 mL/kg/hr) for 12 hours [ ] iii) Aortic dissection [ ] iv) Myocardial Ischemia [ ] v) Left ventricular heart failure [ ]vi) Retinal Hemorrhage [ ]vii) Other significant finding [ ]c) Hypertension in child requiring inpatient treatment as indicated by ALL of the following(14)(15)(16) [ ] i) Outpatient treatment not effective, not available, or not appropriate [ ]ii) SBP or DBP greater than 95th percentile for age [ ]iii) Evidence of acute end organ damage as indicated by ANY ONE of the following [ ]1) Altered mental status [ ]2) Acute renal failure as indicated by new onset of ANY ONE of the following(9)(10)(11)(12)(13) [ ]A. 3-fold rise in serum creatinine from baseline [ ]B. Serum creatinine greater than 4 mg/dL (354 micromoles/L) with acute rise greater than 0.5 mg/dL (44.2 micromoles/L) [ ]C. Reduction of more than 75% in estimated glomerular filtration rate from baseline [ ]D. Estimated glomerular filtration rate less than 35 mL/min/1.73m2 (0.59 mL/sec/1.73m2) in child up to 18 years of age [ ]E. Cessation of urine output indicated by ALL of the following [ ]a. Adequate volume status [ ]b. Inadequate urine output as indicated by ANY ONE of the following [ ]i) Urine output less than 0.3 mL/kg/hr for 24 hours [ ]ii) Anuria ( urine output less than 0.1 mL/kg/hr) for 12 hours [ ]3) Severe headache [ ]4) Visual disturbance [ ]5) Retinal hemorrhage [ ]6) Other significant finding [ ]XIII. Complications of transplanted heart indicated by ANY ONE of the following(61): [ ]a) Acute graft rejection requiring inpatient management (eg, intravenous immunosuppression)(62)(63) [ ]b) Acute graft heart failure indicated by ANY ONE of the following(64): [ ]i) Hemodynamic instability [ ]ii) Cardiac arrhythmias of immediate concern [ ]iii) Pulmonary edema that is very severe (eg, mechanical ventilation needed, imminent or likely, need for 100% oxygen to keep oxygen saturation above 90%) [ ]iv) Pulmonary edema that is persistent as indicated by ALL of the following: [ ]1) New need for oxygen therapy to keep oxygen saturation above 90% (or increased FiO2 need from baseline) [ ]2) Has not improved sufficiently with emergency department or observation care IV diuretics or other heart failure treatments[E] [ ]v) Altered mental status that is severe or persistent [ ]vi) Increased creatinine (new on laboratory test) with reduction of more than 50% in estimated glomerular filtration rate from baseline [ ]vii) Progressively (ongoing) rising creatinine (known from past laboratory test) with reduction of more than 25% in estimated glomerular filtration rate from baseline [ ]viii) Acute renal failure [ ]ix) Acute peripheral ischemia (eg, examination shows pulseless, cool, mottled, or cyanotic extremity) [ ]x) Pulmonary artery catheter monitoring needed [ ]xi) Other sign or symptom of heart failure requiring inpatient treatment (ie, too severe or not responsive to outpatient and observation care treatment) [ ]c) Infection requiring inpatient management (eg, Hemodynamic instability, need for intravenous antimicrobial treatment)(66)(67)(68)(69)(70) [ ]d) Cardiac allograft vasculopathy requiring inpatient management ( eg evidence of cardiac ischemia)(71) [ ]e) Other complication of transplanted heart (eg, stroke, severe pulmonary hypertension, severe valvular dysfunction) requiring inpatient management(72) The original [facility] content created by [facility] has been revised. The portions of the content which have been revised are identified through the use of italic text or in bold, and [facility] has neither reviewed nor approved the modified material. All other unmodified content is copyright [facility]. Please see references footnoted in the original [facility] edition 2016 Admission Criteria Met?: Yes MARIZOL NEELY Jul 19, 2016 00:08
[2016-07-19] MEDS: IV NORMAL SALINE 1000ML BAG 1,000 ML IV SCH (02:05)
[2016-07-19 03:41] VITALS: BP 119/70
--- NOTE | 2016-07-19 07:16 | HP ---
ADMIT DATE: 07/18/2016 TIME: Around 11:00 a.m. CHIEF COMPLAINT: Chest pain. HISTORY OF PRESENT ILLNESS: A 65-year-old male patient with a prior history of coronary artery disease, hypertension, diabetes, presented to the ER with a complaint of right-sided chest pain started around 9 pm yesterday while he was watching TV, located in the right side of the chest and also radiated to the _left upper extremity. He described it as pleuritic in nature and getting worse with breathing. Denies any PND, orthopnea or other symptoms such as syncope, palpitations. The patient had an GA in the past in early 1999 and at that time, no intervention was done. The patient has risk factors such as hypertension, diabetes, hyperlipidemia. PAST MEDICAL HISTORY: Coronary artery disease, hypertension, hyperlipidemia. PAST SURGICAL HISTORY: none FAMILY HISTORY: No sudden cardiac . PERSONAL HISTORY: Quit smoking. No alcohol. No drug abuse. REVIEW OF SYSTEMS: CONSTITUTIONAL: No fever or chills. EYES: No recent vision changes. SKIN: No rash or itching. CARDIOVASCULAR: No chest pain, syncope, palpitations or edema. RESPIRATORY: No shortness of breath, cough. GASTROINTESTINAL: No nausea, vomiting, diarrhea or abdominal pain. NEUROLOGICAL: No headache, paralysis. ENDOCRINOLOGIC: No cold or heat intolerance. GENITOURINARY: No burning with urination, no urgency. MUSCULOSKELETAL: No back pain or joint pain. LYMPHATICS: No enlarged nodes. PSYCHIATRIC: No anxiety or depression. PHYSICAL EXAMINATION: GENERAL: No apparent distress. HEENT: Head normocephalic, atraumatic. NECK: Supple. LUNGS: Clear to auscultation. HEART: Regular rate and rhythm; S1, S2 present; pulses intact. ABDOMEN: Soft and positive bowel sounds. EXTREMITIES: No cyanosis or edema. NEUROLOGIC: Normal speech and normal tone; alert and oriented. PSYCHIATRIC: Normal affect, normal mood. SKIN: No ulceration. ALLERGIES: NKDA. LABORATORY FINDINGS: BMP within normal range. CBC within normal range. Coagulation panel, normal range. Troponin is less than 0.017. DIAGNOSTIC DATA: EKG, not able to obtain the report, but as per the ER report, no acute ST-T wave changes seen. IMAGING STUDIES: Chest x-ray, ____ in the lateral aspect of the right upper chest. ASSESSMENT: 1. Chest pain, pleuritic in nature, also with atypical components. 2. Rule out acute coronary syndrome. 3. Coronary artery disease history. 4. Right pleural lesion. Consult Pulmonary. 5. Hypertension. 6. Diabetes. 7. Hyperlipidemia. 8. Obesity, body mass index 30. 9. History of transient ischemic attack in the past. PLAN: 1. We will get 2 sets of troponins and Cardiology has been consulted. 2. I will order ultrasound of the abdomen to rule out any gallstone disease. 3. Consult Pulmonology for right upper pleural lesion, incidental finding. Also, the patient's pain is compatible with the location. 4. Monitor labs, which is a lipid panel. 5. Home medications reviewed, reconciled. 6. Continue home medications. 7. Sliding scale insulin as needed for hyperglycemia. VIKAS ACKERMAN MD DR: HARLAN/tish JOB#: [id number] / [id number] KELLIE
[2016-07-19 07:55] VITALS: BP 125/69
[2016-07-19] MEDS: FLUOXETINE HCL 20 MG CAPSULE PO SCH (08:45)
[2016-07-19] MEDS: CLONIDINE HCL 0.1 MG TABLET PO SCH (08:45)
[2016-07-19] MEDS: AMLODIPINE BESYLATE 10 MG TABLET PO SCH (08:45)
[2016-07-19] MEDS: LISINOPRIL 20 MG TABLET PO SCH (08:45)
[2016-07-19] MEDS: PANTOPRAZOLE 40 MG TABLET. PO SCH (08:45)
[2016-07-19] MEDS: CHOLECALCIFEROL (VITAMIN D3) 1,000 UNIT TABLET PO SCH (08:45)
[2016-07-19] MEDS: ASPIRIN ENTERIC COATED 81 MG TABLET.DR. PO SCH (08:45)
[2016-07-19] MEDS: MINERAL OIL/PETROLATUM TOPICAL CREAM 113GM JAR. TP SCH ×2 (09:00→21:19)
[2016-07-19] MEDS: HYDROCODONE/APAP 5/325MG TABLET. PO PRN ×2 (10:00→18:24)
--- NOTE | 2016-07-19 10:40 | PDOC ---
PROGRESS NOTES Chief Complaint Chief Complaint cc: 1. Chest pain, pleuritic in nature, also with atypical components. 2. Rule out acute coronary syndrome. 3. Coronary artery disease history. 4. Right pleural lesion. Consult Pulmonary. 5. Hypertension. 6. Diabetes. 7. Hyperlipidemia. 8. Obesity, body mass index 30. 9. History of transient ischemic attack in the past. Plan ACS ruled out CT chest pending US abdomen negative BP control Pain control consult pulmonology Vitals Vitals Vital Signs Date Time Temp Pulse Resp B/P Pulse Ox O2 Delivery O2 Flow Rate FiO2 07/19/16 10:00 96 Room Air 07/19/16 08:45 63 125/69 07/19/16 07:55 97.7 19 97.7 Physical Exam General: Alert, Oriented X3, Cooperative, No acute distress Heart: Regular rate, Normal S1, Normal S2, Other (2/6 systolic murmur to LLS border) Lungs: Clear Abdomen: Soft, Other Extremities: No cyanosis, No edema Skin: No breakdown, No significant lesion Labs LABS Laboratory Tests Test 07/18/16 11:59 07/18/16 12:25 07/18/16 16:55 07/18/16 18:05 Glucose (Fingerstick) 77mg/dL (70-99) 167mg/dL (70-99) Troponin I Quantitative < 0.017ng/mL (0.000-0.055) < 0.017ng/mL (0.000-0.055) Test 07/18/16 21:08 07/19/16 08:06 Glucose (Fingerstick) 125mg/dL (70-99) 103mg/dL (70-99) Assessment and Plan Assessmemt and Plan Problems Medical Problems: (1) Chest pain Status: Acute (2) History of myocardial infarction Status: Acute (3) Hyperlipidemia Status: Acute (4) Hypertension Status: Acute (5) Type 2 diabetes mellitus Status: Acute Problems: Comment Review of Relevant I have reviewed the following items caio (where applicable) has been applied. Labs Laboratory Tests Test 07/17/16 22:40 07/18/16 05:20 07/18/16 08:24 07/18/16 11:59 White Blood Count 6.8x10^3/uL (4.0-11.0) 5.9x10^3/uL (4.0-11.0) Red Blood Count 4.65x10^6/uL (4.30-5.70) 4.33x10^6/uL (4.30-5.70) Hemoglobin 14.3g/dL (13.0-17.5) 13.1g/dL (13.0-17.5) Hematocrit 42.3% (39.0-53.0) 40.5% (39.0-53.0) Mean Corpuscular Volume 91fL (79-100) 94fL (79-100) Mean Corpuscular Hemoglobin 31pg (25-35) 30pg (25-35) Mean Corpuscular Hemoglobin Concent 34g/dL (31-37) 32g/dL (31-37) Red Cell Distribution Width 13.3% (11.5-14.5) 13.6% (11.5-14.5) Platelet Count 260x10^3/uL (140-400) 207x10^3/uL (140-400) Neutrophils (%) (Auto) 61% (31-73) 57% (31-73) Lymphocytes (%) (Auto) 24% (24-48) 28% (24-48) Monocytes (%) (Auto) 12% (0-9) 13% (0-9) Eosinophils (%) (Auto) 2% (0-3) 3% (0-3) Basophils (%) (Auto) 1% (0-3) 1% (0-3) Neutrophils # (Auto) 4.1x10^3uL (1.8-7.7) 3.3x10^3uL (1.8-7.7) Lymphocytes # (Auto) 1.6x10^3/uL (1.0-4.8) 1.6x10^3/uL (1.0-4.8) Monocytes # (Auto) 0.8x10^3/uL (0.0-1.1) 0.8x10^3/uL (0.0-1.1) Eosinophils # (Auto) 0.1x10^3/uL (0.0-0.7) 0.2x10^3/uL (0.0-0.7) Basophils # (Auto) 0.0x10^3/uL (0.0-0.2) 0.0x10^3/uL (0.0-0.2) Prothrombin Time 13.5SEC (11.7-14.0) Prothromb Time International Ratio 1.1 (0.8-1.1) Sodium Level 142mmol/L (136-145) 137mmol/L (136-145) Potassium Level 4.2mmol/L (3.5-5.1) 4.2mmol/L (3.5-5.1) Chloride Level 103mmol/L (98-107) 106mmol/L (98-107) Carbon Dioxide Level 28mmol/L (21-32) 26mmol/L (21-32) Anion Gap 11 (6-14) 5 (6-14) Blood Urea Nitrogen 20mg/dL (8-26) 17mg/dL (8-26) Creatinine 1.1mg/dL (0.7-1.3) 1.0mg/dL (0.7-1.3) Estimated GFR (Cockcroft-Gault) 67.0 90.5 Glucose Level 135mg/dL (70-99) 118mg/dL (70-99) Calcium Level 9.7mg/dL (8.5-10.1) 8.8mg/dL (8.5-10.1) Magnesium Level 1.9mg/dL (1.8-2.4) Total Bilirubin 0.4mg/dL (0.2-1.0) Direct Bilirubin 0.1mg/dL (0.0-0.2) Aspartate Amino Transf (AST/SGOT) 35U/L (15-37) Alanine Aminotransferase (ALT/SGPT) 48U/L (16-63) Alkaline Phosphatase 71U/L (46-116) Creatine Kinase 104U/L (39-308) Creatine Kinase MB (Mass) 0.7ng/mL (0.0-3.6) Creatine Kinase MB Relative Index 0.7% (0-4) Troponin I Quantitative < 0.017ng/mL (0.000-0.055) < 0.017ng/mL (0.000-0.055) OY-Ied-R-Type Natriuretic Peptide 59pg/mL (0-124) Total Protein 7.5g/dL (6.4-8.2) Albumin 3.7g/dL (3.4-5.0) Triglycerides Level 74mg/dL (0-150) Cholesterol Level 138mg/dL (0-200) LDL Cholesterol, Calculated 84mg/dL (0-100) VLDL Cholesterol, Calculated 15mg/dL (0-40) HDL Cholesterol 39mg/dL (40-60) Cholesterol/HDL Ratio 3.5 Thyroid Stimulating Hormone (TSH) 1.168uIU/mL (0.358-3.74) Glucose (Fingerstick) 102mg/dL (70-99) 77mg/dL (70-99) Test 07/18/16 12:25 07/18/16 16:55 07/18/16 18:05 07/18/16 21:08 Troponin I Quantitative < 0.017ng/mL (0.000-0.055) < 0.017ng/mL (0.000-0.055) Glucose (Fingerstick) 167mg/dL (70-99) 125mg/dL (70-99) Test 07/19/16 08:06 Glucose (Fingerstick) 103mg/dL (70-99) Laboratory Tests Test 07/18/16 11:59 07/18/16 12:25 07/18/16 16:55 07/18/16 18:05 Glucose (Fingerstick) 77mg/dL (70-99) 167mg/dL (70-99) Troponin I Quantitative < 0.017ng/mL (0.000-0.055) < 0.017ng/mL (0.000-0.055) Test 07/18/16 21:08 07/19/16 08:06 Glucose (Fingerstick) 125mg/dL (70-99) 103mg/dL (70-99) Medications Current Medications Fentanyl Citrate 50 mcg 50 mcg PRN Q15MIN PRN IV PAIN GREATER THAN 3/10 Last administered on 07/17/16 23:47; Start 07/17/16 at 23:15; Stop 07/18/16 at 01:00 ; Status DC Sodium Chloride (Iv Sodium Chloride 0.9% 1000ml Bag) 1,000 ml @ 100 mls/hr Q10H IV Last administered on 07/17/16 23:46; Start 07/17/16 at 23:30; Stop at 09:29; Status DC Ondansetron HCl (Zofran) 4 mg 1X ONCE IV Last administered on 07/17/16 23:46 ; Start 07/17/16 at 23:30; Stop 07/17/16 at 23:31; Status DC Ondansetron HCl (Zofran) 4 mg PRN Q8HRS PRN IV NAUSEA/VOMITING; Start 07/18/16 at 00:00; Stop 07/18/16 at 23:59; Status DC Fentanyl Citrate 50 mcg 50 mcg PRN Q2HR PRN IV SEVERE PAIN; Start 07/18/16 at 00:00; Stop 07/18/16 at 23:59; Status DC Sodium Chloride (Iv Sodium Chloride 0.9% 1000ml Bag) 1,000 ml @ 100 mls/hr Q10H IV Last administered on 07/19/16 02:05; Start 07/17/16 at 23:54; Stop at 23:53; Status DC Acetaminophen (Tylenol) 650 mg PRN Q4HRS PRN PO FEVER; Start 07/18/16 at 00:00 ; Stop 07/18/16 at 23:59; Status DC Regadenoson (Lexiscan) 0.4 mg 1X ONCE IV Last administered on 07/18/16 11:20 ; Start 07/18/16 at 10:15; Stop 07/18/16 at 10:16; Status DC Amlodipine Besylate (Norvasc) 10 mg DAILY PO Last administered on 07/19/16 08: 45; Start 07/19/16 at 09:00 Aspirin (Ecotrin) 81 mg DAILY PO Last administered on 07/19/16 08:45; Start at 12:00 Atorvastatin Calcium (Lipitor) 20 mg HS PO Last administered on 07/18/16 21:31 ; Start 07/18/16 at 21:00 Vitamin D (Vitamin D3) 1,000 unit DAILY PO Last administered on 07/19/16 08:45 ; Start 07/18/16 at 12:00 Clonidine HCl (Catapres) 0.1 mg DAILY PO Last administered on 07/19/16 08:45; Start 07/18/16 at 12:00 Clonidine HCl (Catapres) 0.2 mg QHS PO Last administered on 07/18/16 21:35; Start 07/18/16 at 21:00 Fluoxetine HCl (Prozac) 20 mg DAILY PO Last administered on 07/19/16 08:45; Start 07/18/16 at 12:00 Lisinopril (Prinivil) 20 mg DAILY PO Last administered on 07/19/16 08:45; Start 07/18/16 at 12:00 Multi-Ingred Cream/Lotion/Oil/ Oint (Hydrocerin) 1 jeovanny BID TP Last administered on 07/19/16 09:00; Start 07/18/16 at 12:00 Mirtazapine (Remeron) 30 mg QHS PO Last administered on 07/18/16 21:32; Start 07/18/16 at 21:00 Nortriptyline HCl (Pamelor) 150 mg QHS PO Last administered on 07/18/16 21:31 ; Start 07/18/16 at 21:00 Ondansetron HCl (Zofran Odt) 8 mg PRN BID PRN PO NAUSEA/VOMITING; Start at 11:15 Pantoprazole Sodium (Protonix) 40 mg DAILYAC PO Last administered on 07/19/16 08:45; Start 07/18/16 at 12:00 Acetaminophen/ Hydrocodone Bitart (Lortab 5/325) 1 tab PRN Q6HRS PRN PO PAIN Last administered on 07/19/16 10:00; Start 07/19/16 at 09:45 Active Scripts Active Reported Pantoprazole Sodium 20 Mg Tablet.dr 20 Mg PO DAILY Ondansetron Hcl 8 Mg Tablet 8 Mg PO BID PRN Nortriptyline Hcl 75 Mg Capsule 150 Mg PO QHS Naproxen 500 Mg Tablet 1 Tab PO BID Mirtazapine 30 Mg Tablet 1 Tab PO QHS Metformin Hcl 500 Mg Tablet 1 Tab PO BID Castiva Cooling Lotion (Menth/Me-Salicyl In [place] Oil) 113 Gm Liquid 113 Gm TP Lisinopril 20 Mg Tablet 1 Tab PO DAILY Eucerin Creme (Mineral Oil/White Petrolatum) 120 Gm Cream..g. 1 Jeovanny TP BID Fluoxetine Hcl 20 Mg Capsule 1 Cap PO DAILY Clonidine Hcl 0.2 Mg Tablet 1 Tab PO QHS Clonidine Hcl 0.1 Mg Tablet 0.1 Mg PO DAILY Vitamin D3 (Cholecalciferol (Vitamin D3)) 1,000 Unit Tablet 1 Tab PO DAILY Atorvastatin Calcium 20 Mg Tablet 20 Mg PO HS Aspirin Ec (Aspirin) 81 Mg Tablet.dr 1 Tab PO DAILY Biotene Moisturizing Mouth (Saliva Stimulant Agents Comb.3) 44.3 Ml [place] 44.3 Ml MM [id number] Amlodipine Besylate 10 Mg Tablet 10 Mg PO DAILY Vitals/I & O Vital Sign - Last 24 Hours 07/18/16 07/18/16 07/18/16 07/18/16 12:00 13:54 13:54 15:00 Temp 97.7 97.9 97.7 97.9 Pulse 65 65 65 68 Resp 18 18 B/P 131/76 131/76 131/76 121/50 Pulse Ox 96 99 O2 Delivery Room Air Room Air 07/18/16 07/18/16 07/18/16 07/18/16 19:10 20:00 21:35 23:01 Temp 97.9 97.6 97.9 97.6 Pulse 72 76 66 Resp 18 18 B/P 128/65 128/65 123/66 Pulse Ox 97 97 O2 Delivery Room Air Room Air Room Air 07/19/16 07/19/16 07/19/16 07/19/16 03:41 07:55 08:00 08:45 Temp 97.5 97.7 97.5 97.7 Pulse 67 63 63 Resp 20 19 B/P 119/70 125/69 125/69 Pulse Ox 98 96 O2 Delivery Room Air Room Air Room Air 07/19/16 07/19/16 07/19/16 08:45 08:45 10:00 Pulse 63 63 B/P 125/69 125/69 Pulse Ox 96 O2 Delivery Room Air Intake and Output 07/18/16 07/18/16 07/19/16 15:00 23:00 07:00 Intake Total 1320 ml 200 ml Output Total 1150 ml 2800 ml Balance 170 ml -2600 ml VIKSA ACKERMAN MD Jul 19, 2016 10:40
[2016-07-19] MEDS ORDERED: IOHEXOL 300 MG/ML 75 ML VIAL IV ONE (11:00)
[2016-07-19] MEDS ORDERED: CONTRAST GIVEN MC PRN (11:15)
[2016-07-19 11:16] VITALS: BP 121/64
--- NOTE | 2016-07-19 11:51 | PDOC ---
Provider Note Provider Note dictated NUPUR LUGO MD Jul 19, 2016 11:50
--- NOTE | 2016-07-19 12:20 | CONS ---
DATE OF CONSULTATION: ATTENDING PHYSICIAN: Dr. Holloway. REASON FOR CONSULTATION: Abnormal chest x-ray. HISTORY OF PRESENT ILLNESS: The patient is a 65-year-old male, who has prior history of coronary artery disease, hypertension and diabetes. He presented to the hospital with 4-day history of right-sided chest pain. The patient woke up yesterday while watching TV and the pain was located in the right side of the chest. He says there is no recent trauma. No falls. He has no PND, orthopnea. The patient was seen by Cardiology as well and I was consulted. I reviewed the patient's chest x-ray, there appears to be a pleural based density in the right upper lobe. CT chest has been ordered for further evaluation. He smoked for 20 years before, quitting 10 years ago. PAST MEDICAL HISTORY: Significant for history of coronary artery disease, hypertension, diabetes and minimal history of tobacco use. PAST SURGICAL HISTORY: No recent surgery. ALLERGIES: None. FAMILY HISTORY: Noncontributory. SOCIAL HISTORY: Quit tobacco 10 years ago, before that smoked for 20 years. REVIEW OF SYSTEMS: Twelve-point systems obtained, pertinent positives discussed in my history of present illness, otherwise noncontributory. All systems that were negative were reviewed as well. MEDICATIONS: Reviewed as listed in the MRAD. PHYSICAL EXAMINATION: VITAL SIGNS: Stable. Pulse ox 97% on room air. NECK: Supple. LUNGS: Clear. CARDIOVASCULAR: Regular rate and rhythm. ABDOMEN: Soft, nontender. EXTREMITIES: With no pitting edema. LABORATORY DATA: Reviewed. White cell count 5.9, hemoglobin 13.1. Renal function was reviewed as well. BUN 17, creatinine 1.0. INR is 1.1. IMPRESSION: 1. Right-sided chest pain. I suspect most likely secondary to a pleural based density. Could be a hematoma or a pleural based mass. There is no recent history of trauma. Clinically, I do not think any reason to suspect thromboembolic disease. His saturations are 97% on room air. 2. Minimal history of tobacco use. 3. No cardiac etiology for chest pain. RECOMMENDATIONS: 1. Proceed with CT chest without contrast to better assess for pleural based density. 2. Further recommendations to follow after review of CT chest. 3. Continue with cardiology recommendations. NUPUR U. LUGO, MD DR: ALONDRA/tish JOB#: [id number] / [id number] KELLIE
--- NOTE | 2016-07-19 13:19 | RAD ---
EXAM: CT OF THE CHEST WITH INTRAVENOUS CONTRAST. HISTORY: Chest pain, mass on radiographs.. TECHNIQUE: Computed tomography of the chest was performed after the intravenous administration of 75 mL Omnipaque 300. COMPARISON: 07/17/2016. FINDINGS: Images of the upper abdomen reveal no acute abnormality. Stool throughout the colon is consistent with constipation. Bone windows reveal no suspicious lesions. A ventricular mass along the right lateral pleura is fat and fluid attenuation and measures 3.9 x 1.6 cm. There is a trace right pleural effusion. There is no pericardial effusion. There are no pathologically enlarged lymph nodes. The heart is not enlarged. There is mild atelectasis in the bases. There is no parenchymal mass. IMPRESSION: 1. 3.9 x 1.6 cm low-density pleural-based mass laterally on the right. 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 It is not simple fat attenuation, but there is no solid soft tissue density nodule. If long-term stability is not already known, follow-up could be performed initially in 3-6 months. 2. Correlate for constipation. *One or more of the following individualized dose reduction techniques were utilized for this examination: 1. Automated exposure control. 2. Adjustment of the mA and/or kV according to patient size. 3. Use of iterative reconstruction technique.
[2016-07-19 14:25] VITALS: BP 115/72
[2016-07-19 19:00] VITALS: BP 123/69
[2016-07-19] MEDS: MIRTAZAPINE 15 MG TABLET PO SCH (21:17)
[2016-07-19] MEDS: ATORVASTATIN CALCIUM 20 MG TABLET PO SCH (21:17)
[2016-07-19] MEDS: CLONIDINE HCL 0.2 MG TABLET PO SCH (21:17)
[2016-07-19] MEDS: NORTRIPTYLINE 25 MG CAPSULE PO SCH (21:18)
[2016-07-19 23:40] VITALS: BP 134/69
[2016-07-20] MEDS: HYDROCODONE/APAP 5/325MG TABLET. PO PRN ×2 (03:13→09:15)
[2016-07-20 03:47] VITALS: BP 122/62
[2016-07-20 07:45] VITALS: BP 126/68
[2016-07-20] MEDS: ASPIRIN ENTERIC COATED 81 MG TABLET.DR. PO SCH (08:03)
[2016-07-20] MEDS: FLUOXETINE HCL 20 MG CAPSULE PO SCH (08:04)
[2016-07-20] MEDS: CHOLECALCIFEROL (VITAMIN D3) 1,000 UNIT TABLET PO SCH (08:04)
[2016-07-20] MEDS: AMLODIPINE BESYLATE 10 MG TABLET PO SCH (08:04)
[2016-07-20] MEDS: CLONIDINE HCL 0.1 MG TABLET PO SCH (08:05)
[2016-07-20] MEDS: PANTOPRAZOLE 40 MG TABLET. PO SCH (08:05)
[2016-07-20] MEDS: LISINOPRIL 20 MG TABLET PO SCH (08:06)
[2016-07-20] MEDS: MINERAL OIL/PETROLATUM TOPICAL CREAM 113GM JAR. TP SCH (08:07)
[2016-07-20 11:21] VITALS: BP 124/71
--- NOTE | 2016-07-20 11:42 | PDOC ---
PULMONARY PROGRESS NOTES Subjective c/w pain on right Vitals Vital Signs Date Time Temp Pulse Resp B/P Pulse Ox O2 Delivery O2 Flow Rate FiO2 07/20/16 11:30 16 Room Air 07/20/16 11:21 63 124/71 94 07/20/16 08:00 4.0 07/20/16 07:45 98.1 98.1 General: Alert, No acute distress Lungs: Clear Cardiovascular: S1 Abdomen: Soft Neuro Exam: Alert Extremities: No Edema Skin: Warm Labs Laboratory Tests Test 07/18/16 11:59 07/18/16 12:25 07/18/16 16:55 07/18/16 18:05 Glucose (Fingerstick) 77mg/dL (70-99) 167mg/dL (70-99) Troponin I Quantitative < 0.017ng/mL (0.000-0.055) < 0.017ng/mL (0.000-0.055) Test 07/18/16 21:08 07/19/16 08:06 07/19/16 11:39 07/19/16 17:02 Glucose (Fingerstick) 125mg/dL (70-99) 103mg/dL (70-99) 102mg/dL (70-99) 109mg/dL (70-99) Test 07/19/16 20:42 07/20/16 07:53 Glucose (Fingerstick) 169mg/dL (70-99) 101mg/dL (70-99) Laboratory Tests Test 07/19/16 17:02 07/19/16 20:42 07/20/16 07:53 Glucose (Fingerstick) 109mg/dL (70-99) 169mg/dL (70-99) 101mg/dL (70-99) Medications Active Scripts Medications Dose Route/Sig Days Date Category Pantoprazole Sodium 20 Mg Tablet.dr 20 Mg PO DAILY 07/18/16 Reported Ondansetron Hcl 8 Mg Tablet 8 Mg PO BID PRN 07/18/16 Reported Nortriptyline Hcl 75 Mg Capsule 150 Mg PO QHS 07/18/16 Reported Naproxen 500 Mg Tablet 1 Tab PO BID 07/18/16 Reported Mirtazapine 30 Mg Tablet 1 Tab PO QHS 07/18/16 Reported Metformin Hcl 500 Mg Tablet 1 Tab PO BID 07/18/16 Reported Castiva Cooling Lotion (Menth/Me-Salicyl In [place] Oil) 113 Gm Liquid 113 Gm TP 07/18/16 Reported Lisinopril 20 Mg Tablet 1 Tab PO DAILY 07/18/16 Reported Eucerin Creme (Mineral Oil/White Petrolatum) 120 Gm Cream..g. 1 Jeovanny TP BID 07/18/16 Reported Fluoxetine Hcl 20 Mg Capsule 1 Cap PO DAILY 07/18/16 Reported Clonidine Hcl 0.2 Mg Tablet 1 Tab PO QHS 07/18/16 Reported Clonidine Hcl 0.1 Mg Tablet 0.1 Mg PO DAILY 07/18/16 Reported Vitamin D3 (Cholecalciferol (Vitamin D3)) 1,000 Unit Tablet 1 Tab PO DAILY 07/18/16 Reported Atorvastatin Calcium 20 Mg Tablet 20 Mg PO HS 07/18/16 Reported Aspirin Ec (Aspirin) 81 Mg Tablet.dr 1 Tab PO DAILY 07/18/16 Reported Biotene Moisturizing Mouth (Saliva Stimulant Agents Comb.3) 44.3 Ml [place] 44.3 Ml MM [id number] 07/18/16 Reported Amlodipine Besylate 10 Mg Tablet 10 Mg PO DAILY 07/18/[address] CHEST 1. 3.9 x 1.6 cm low-density pleural-based mass laterally on the right. 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 It is not simple fat attenuation, but there is no solid soft tissue density nodule. If long-term stability is not already known, follow-up could be performed initially in 3-6 months. Impression . 1. Right-sided chest pain. CT Chest c/w complicated lipoma 2. Minimal history of tobacco use. 3. No cardiac etiology for chest pain. Plan . 1. CT Chest c/w complicated lipoma 2. repeat CT chest in October. f/u with me at that time 3. Continue with cardiology recommendations. NUPUR LUGO MD Jul 20, 2016 11:42
--- NOTE | 2016-07-21 03:02 | DS ---
DATE OF DISCHARGE: 07/20/2016 DISCHARGE DIAGNOSES: 1. Right-sided chest pain due to complex lipoma pleuritic. 2. Acute coronary syndrome rule out. 3. Prior history of coronary artery disease. 4. Hypertension. 5. Diabetes. 6. Hyperlipidemia. 7. Obesity. BMI is 30. 8. Prior history of transient ischemic attack. BRIEF HOSPITAL COURSE: A 65-year-old male patient presented to the ER with right-sided chest pain given his coronary artery disease, the patient was admitted to rule out ACS and he had a nuclear stress test, which is negative and also had ultrasound of the abdomen, which is negative for any cholecystitis. He had a ____ pleuritic right-sided chest pain. A CT of the chest was ordered which showed complex low density pleural based lipoma, pulmonology has been consulted who recommended us to repeat CAT scan in 3-6 months. Today, he deemed clinically stable to go home in stable condition. DISCHARGE EXAMINATION: GENERAL: Alert, oriented x 3. HEART: S1, S2 present. LUNGS: Clear to auscultation. ABDOMEN: Soft, nontender, no organomegaly. EXTREMITIES: No edema. DISCHARGE DISPOSITION: Home. DISCHARGE CONDITION: Stable. DISCHARGE MEDICATIONS: Reviewed and reconciled. Please see MRAD. DIET: Cardiac diet. FOLLOWUP: With primary care doctor and Dr. Hobbs in 3-6 months. Total time spent for discharge is 31 minutes for patient education, counseling, and coordination of care. I did discuss with RN and I tried to reach to the patient at the [facility] as number was provided by the nursing staff, attempted twice; however, I could not able to reach. The patient is in stable condition to go home at this time. VIKAS ACKERMAN MD DR: HARLAN/tish JOB#: [id number] / [id number]
== END 2016-07-20 14:40 | disposition home or self-care (01) | DRG 181 ==
LOC: ER 22:10 → 2 SOUTH 23:39
PROVIDERS: ADMIT Internal Medicine; ATTEND Internal Medicine
DX: D17.4 Benign lipomatous neoplasm of intrathoracic organs (principal); I24.9 Acute ischemic heart disease, unspecified; R07.81 Pleurodynia; E11.9 Type 2 diabetes mellitus without complications; E66.9 Obesity, unspecified; E78.5 Hyperlipidemia, unspecified; F43.10 Post-traumatic stress disorder, unspecified; I10 Essential (primary) hypertension; I25.10 Atherosclerotic heart disease of native coronary artery without angina pectoris; K21.9 Gastro-esophageal reflux disease without esophagitis; Z68.30 Body mass index [BMI] 30.0-30.9, adult; F41.9 Anxiety disorder, unspecified; G56.02 Carpal tunnel syndrome, left upper limb; Z87.891 Personal history of nicotine dependence; M19.90 Unspecified osteoarthritis, unspecified site; Z86.73 Personal history of transient ischemic attack (TIA), and cerebral infarction without residual deficits; I25.2 Old myocardial infarction
CPT/HCPCS: 36415; 71010; 71260; 76705; 78452; 80048; 80061; 80076; 82553; 82947; 83735; 83880; 84443; 84484; 85027; 85610; 93005; 93017; 93306; 96361; 96374; 96375; 96376; A9500; J2405; J2785; J3010; J7030; Q9967; 99285-25